=== PATIENT | female | born 1980 | race Two or more races ===

== ENCOUNTER 2019-11-12 14:44 | Emergency (ER) | payer SELFPAY ==
[~2019-11-12] VITALS: Ht 172.7 cm; Wt 82.9 kg
[2019-11-12 15:04] VITALS: BP 127/49
--- NOTE | 2019-11-12 15:28 | NUR ---
PT AMBULATORY WITH STEADY GAIT TO ROOM AT THIS TIME.
[2019-11-12] MEDS ORDERED: DEXAMETHASONE 4 MG TABLET ONE (15:50)
[2019-11-12] MEDS ORDERED: DEXAMETHASONE 4 MG TABLET PO ONE (16:00)
== END 2019-11-12 16:12 | disposition home or self-care (01) ==
LOC: ED 16:06
DX: J02.9 Acute pharyngitis, unspecified (principal); F17.210 Nicotine dependence, cigarettes, uncomplicated
CPT/HCPCS: 87081; 87880; 99283; 99406